=== PATIENT | female | born 1965 | race Caucasian/White ===

== ENCOUNTER 2021-08-05 15:12 | Emergency (ER) | payer OTHER, SELFPAY ==
[2021-08-05 15:26] VITALS: BP 150/88; PULSE 85; RESP 16; TEMP 36.8; O2SAT 100
--- NOTE | 2021-08-05 15:50 | ED.URI ---
HPI - URI/Sore Throat General Chief Complaint: Upper Respiratory Infection Stated Complaint: chills/back pain/congestion/cough Time Seen by Provider: 08/05/21 15:50 Source: patient, RN notes reviewed and old records reviewed Mode of arrival: ambulatory Limitations: no limitations History of Present Illness HPI Narrative: 56-year-old female presents to the [facility] with complaints of cough, nasal congestion and headache since Wednesday. States that she was going to work and developed a left mid back pain worse with movement. Denies abdominal pain or chest pain. No nausea vomiting or diarrhea. Denies fevers No loss or retention of bowel or bladder. No numbness and tingling in extremities Related Data Home Medications Medication Instructions Recorded Confirmed alprazolam 1 mg PO TID 08/05/21 08/05/21 clobetasol TOPICAL DAILY 08/05/21 ibuprofen 800 mg PO DAILY 08/05/21 08/05/21 levothyroxine [Euthyrox] 08/05/21 08/05/21 levothyroxine [Euthyrox] 25 mcg PO DAILY 08/05/21 08/05/21 Allergies Allergy/AdvReac Type Severity Reaction Status Date / Time No Known Allergies Allergy Verified 08/05/21 15:51 Review of Systems Review of Systems: All systems reviewed & are unremarkable except as noted in HPI and below Constitutional: Constitutional: Reports as per HPI, Reports chills, Denies fever(s) and Denies headache(s) Eyes: Eyes: Reports no additional eye complaints ENT: Reports as per HPI, Denies vertigo, Denies dizziness, Denies headache(s), Reports nasal congestion and Denies sore throat Cardiovascular: Cardiovascular: Reports no additional cardiovascular complaints, Denies chest pain, Denies syncope, Denies rapid heart rate and Denies dyspnea Respiratory: Respiratory: Reports as per HPI, Reports cough, Denies dyspnea and Denies wheezing Gastrointestinal: Gastrointestinal: Reports no additional gastrointestinal complaints, Denies abdominal pain, Denies diarrhea, Denies nausea and Denies vomiting Musculoskeletal: Musculoskeletal: Reports as per HPI, Reports back pain (Left mid, worse with movement) and Denies numbness Integumentary/Breasts: Skin/Breast: Reports system reviewed and no additional complaints, except as docu Neurologic: Reports system reviewed and no additional complaints, except as documented, Denies vertigo, Denies dizziness, Denies syncope, Denies headache(s), Denies focal weakness and Denies numbness Psychiatric: Psychiatric: Reports no additional psychiatric complaints Allergic/Immunologic: Allergic/Immunologic: Reports no additional allergic/immunologic complaints and Denies wheezing PMFSH Past Medical History Medical History Anxiety Comments At the time of my signature, I reviewed and agree with the nursing past medical, surgical, social, and family history. There is no relevant family history pertinent to the patient complaint. Exam Const: General: cooperative, healthy appearing, no acute distress, well developed and alert Nutritional Appearance: well nourished Orientation/consciousness: patient oriented x3 Limitations: no limitations HENMT: Head: normal to inspection Ears: hearing grossly normal bilaterally, external ears normal, TM's normal bilaterally and EAC's normal General nose exam: Normal external nose present, Normal nares present and No nasal discharge present Mouth: Yes Normal oral and palatal mucosa present Throat: posterior oropharynx normal, uvula midline and postnasal drainage Eyes: Conjunctivae: conjunctivae normal Pupils: Equal, round and reactive pupils present Neck: Neck: normal visual inspection, no lymphadenopathy and no meningeal signs Chest: Chest palpation & inspection: normal inspection of the chest Resp: Effort & Inspection: normal respiratory effort and no use of accessory muscles Auscultation: clear to auscultation bilaterally, no crackles, no rales, no rhonchi and no wheezes Cardio: Rate: regular rate Rhythm:
[2021-08-06 21:18] LABS: SARS-CoV-2 RNA PCR Negative
== END 2021-08-05 16:23 | disposition home or self-care (01) ==
PROVIDERS: Emergency Provider Nurse Practitioner
DX: J06.9 Acute upper respiratory infection, unspecified (principal); M54.6 Pain in thoracic spine; Z20.822 Contact with and (suspected) exposure to COVID-19; F41.9 Anxiety disorder, unspecified
CPT/HCPCS: 99213; C9803; G0463; U0003; U0005

== ENCOUNTER 2021-12-21 08:07 | Emergency (ER) | payer BC, OTHER, SELFPAY ==
[2021-12-21 08:20] VITALS: BP 140/86; PULSE 66; RESP 21; TEMP 36.1; O2SAT 98
--- NOTE | 2021-12-21 08:23 | ED.URI ---
HPI - URI/Sore Throat General Chief Complaint: Upper Respiratory Infection Stated Complaint: Headache,Congestion Time Seen by Provider: 12/21/21 08:24 Source: patient Mode of arrival: ambulatory Limitations: no limitations History of Present Illness HPI Narrative: 56-year-old female presents with complaint of nasal congestion, runny nose, sneezing for 2 weeks. Reports over the past 2 to 3 days she is feeling fatigued, blowing green drainage from her nose, sinus pressure. Feeling hot but reports reports no fever. Did a COVID test last night that was negative. Denies shortness of breath and chest pain. All systems reviewed and negative except as noted above. Related Data Home Medications Medication Instructions Recorded Confirmed alprazolam 1 mg tablet 1 tablet PO DAILY 12/21/21 12/21/21 clobetasol 0.05 % topical ointment 1 ea topical DAILY 12/21/21 12/21/21 Allergies Allergy/AdvReac Type Severity Reaction Status Date / Time No Known Allergies Allergy Verified 12/21/21 08:24 Review of Systems Review of Systems: CONSTITUTIONAL: Denies fever, chills, or sweats. Reports fatigue. EYES: Denies visual changes, redness, or discharge. ENT: Reports rhinorrhea, congestion, sinus pressure Denies sore throat and otalgia. CARDIOVASCULAR: Denies chest pain, palpitations, or edema. RESPIRATORY: Denies cough or dyspnea. GASTROINTESTINAL: Denies abdominal pain, nausea, vomiting, or diarrhea. GENITOURINARY: Denies dysuria or hematuria. SKIN: Denies rash or itching. MUSCULOSKELETAL: Denies back pain, joint pain, or myalgia. NEUROLOGIC: Denies headache, numbness, or weakness. PSYCHIATRIC: Denies anxiety or depression. All other systems reviewed are negative, except as documented in HPI. PMFSH Comments At time of signature, agree with nursing past medical, surgical, social and family history. There is no relevant family history pertinent to the presenting complaint. Exam Narrative: GENERAL: This is a well-nourished, well-developed patient, in no apparent distress. HEAD: normocephalic, atraumatic. EYES: PERRL. Sclera clear/white. Vision is grossly intact. EARS: External ears normal, auditory canals clear and without drainage, fluid to bilateral TMs. No erythema. NOSE: External nose normal with no obvious nasal discharge, purulent nasal drainage with erythema to nares, bilateral maxillary sinus tenderness. THROAT: Mucous membranes moist, purulent postnasal drainage. NECK: Neck supple, non-tender without lymphadenopathy, masses or thyromegaly. CARDIOVASCULAR: Regular rate and rhythm without murmurs, gallops, or rubs. RESPIRATORY: Clear to auscultation. Breath sounds equal bilaterally. No wheezes, rales, or rhonchi. SKIN: warm, Dry, intact with no suspicious lesions or rash, good texture and turgor. NEURO: awake, alert, and oriented to person, place and time. There were no obvious focal neurologic abnormalities. EXTREMITIES: Normal range of motion to all extremities. Course Course Level of Care: Express Care Visit Vital Signs Vital signs: Reviewed MDM - URI/Sore Throat MDM Narrative Medical decision making narrative: Patient is aware of diagnosis, understands and agrees to treatment plan. Anticipatory guidance given. Patient agrees to follow-up as directed and is aware of reasons to seek care at the emergency department. Portions of this record may have been created with voice recognition software We will treat patient with antibiotic for bacterial sinusitis due to duration of symptoms. Discharge Plan Discharge Clinical Impression: Acute bacterial sinusitis Patient Disposition: Home, Self-Care Condition: Stable Instructions: Antibiotic Form, Sinusitis (ED) Additional Instructions: Take medications as prescribed. Drink plenty of water and rest. Follow-up with your primary care physician if symptoms not improving. Prescriptions: New amoxicillin 875 mg tablet 875 mg PO Q12H 10 Days Qty: 20 0RF
== END 2021-12-21 08:35 | disposition home or self-care (01) ==
PROVIDERS: Emergency Provider Nurse Practitioner Family; PCP Family Medicine
DX: J01.90 Acute sinusitis, unspecified (principal); F41.9 Anxiety disorder, unspecified
CPT/HCPCS: 99203; G0463

== ENCOUNTER 2022-02-11 13:38 | Emergency (ER) | payer BC, OTHER, SELFPAY ==
[2022-02-11 13:46] VITALS: BP 143/91; PULSE 83; RESP 16; TEMP 37.1; O2SAT 98
--- NOTE | 2022-02-11 14:16 | ED.BACK ---
HPI - Back Pain/Injury General Chief Complaint: Back Pain/Injury Stated Complaint: lower back pain Time Seen by Provider: 02/11/22 14:04 Source: patient Mode of arrival: ambulatory Limitations: no limitations History of Present Illness HPI Narrative: Patient presents today complaining of low back pain since last night. States she was carrying a couch with a family member, when they dropped their end of the couch and she fell with her end of the couch onto her buttocks. States this caused some back pain last night. She took some ibuprofen and used some icy hot last night, which did help. She has not tried any other interventions today. She currently rates her pain 7/10. Denies numbness or tingling in the genitals or extremities. Denies any loss of bowel or bladder control. Patient also states a 5-day history of nasal congestion and green nasal discharge. She has not tried any [id number] interventions for the symptoms prior to arrival. Denies any additional upper respiratory symptoms. She has taken Claritin in the past for similar symptoms. Related Data Home Medications Medication Instructions Recorded Confirmed alprazolam 1 mg tablet 1 tablet PO DAILY 12/21/21 02/11/22 Allergies Allergy/AdvReac Type Severity Reaction Status Date / Time No Known Allergies Allergy Verified 02/11/22 13:52 Review of Systems Review of Systems: CONSTITUTIONAL: Denies body aches, fever, chills, or sweats. EYES: Denies visual changes, redness, or discharge. ENT: Denies rhinorrhea, sore throat, or otalgia.+ Congestion CARDIOVASCULAR: Denies chest pain, palpitations, or edema. RESPIRATORY: Denies cough or dyspnea. GASTROINTESTINAL: Denies abdominal pain, nausea, vomiting, or diarrhea. GENITOURINARY: Denies dysuria or hematuria. SKIN: Denies rash, itching, or wounds. MUSCULOSKELETAL: Denies joint pain, or myalgia.+ Back pain NEUROLOGIC: Denies headache, numbness, tingling, or weakness. PSYCH: Denies depression or anxiety. PMFSH Comments At time of signature, I have reviewed and agree with nursing past medical, surgical, social and family history unless otherwise noted. Please see nursing chart for further information. There is no relevant family history pertinent to the presenting complaint Exam Narrative: GENERAL: Well-appearing, well-nourished, and in no acute distress. HEAD: Normocephalic, atraumatic. EYES: EOMI. No redness or drainage. Conjunctivae normal. ENT: Mucous membranes pink and moist. Nares mildly congested. No rhinorrhea. TMs normal bilaterally. Throat normal. Uvula midline. NECK: Normal AROM. Supple. No lymphadenopathy. CHEST: No respiratory distress. Clear to auscultation. HEART: Regular rate and rhythm. No murmur appreciated. Normal peripheral pulses. MUSCULOSKELETAL: No bony tenderness of the spine. Bilateral lower lumbar paraspinal muscle tenderness. No SI joint tenderness. Distal sensation intact. Saddle sensation intact. Capillary refill normal. Pedal pulses normal. Dorsiflexion and plantarflexion equal and strong against resistance. EXTREMITIES: Normal range of motion. No edema. SKIN: Warm, dry, no rash. Capillary refill normal. Normal skin turgor. NEURO: No focal deficits. Alert and oriented x3. Gait steady. PSYCH: Normal affect. No signs of depression or anxiety. Course Course Level of Care: Express Care Visit Vital Signs Vital signs: Vital Signs Temperature 98.7 F 02/11/22 13:46 Pulse Rate 83 02/11/22 13:46 Respiratory Rate 16 02/11/22 13:46 Blood Pressure 143/91 H 02/11/22 13:46 Pulse Oximetry 98 02/11/22 13:46 Oxygen Delivery Room Air 02/11/22 13:46 Temperature 98.7 F 02/11/22 13:46 Pulse Rate 83 02/11/22 13:46 Respiratory Rate 16 02/11/22 13:46 Blood Pressure 143/91 H 02/11/22 13:46 Pulse Oximetry 98 02/11/22 13:46 Oxygen Delivery Room Air 02/11/22 13:46 Reviewed. Pt has been instructed to follow up with her PCP regarding her e
== END 2022-02-11 14:25 | disposition home or self-care (01) ==
PROVIDERS: Emergency Provider Nurse Practitioner; PCP Family Medicine
DX: S39.012A Strain of muscle, fascia and tendon of lower back, initial encounter (principal); W19.XXXA Unspecified fall, initial encounter; J31.0 Chronic rhinitis; F41.9 Anxiety disorder, unspecified
CPT/HCPCS: 99213; G0463

== ENCOUNTER 2022-04-03 11:42 | Emergency (ER) | payer BC, SELFPAY ==
[2022-04-03 11:53] VITALS: BP 151/84; PULSE 74; RESP 18; TEMP 35.9; O2SAT 98
--- NOTE | 2022-04-03 11:56 | ED.EPISTAXIS ---
HPI - Epistaxis General Chief complaint: Epistaxis Stated complaint: Nose Bleeding Time Seen by Provider: 04/03/22 11:56 History of Present Illness HPI Narrative: Charity Godinez is a 56-year-old female with a prior medical history of hypertension. Patient has been having nosebleeds throughout the week and she is to return to her primary care physician to be started on hyper tensive meds. Blood pressure today is 151/84. She has had nosebleeds in the last 2 to 3 days Related Data Home Medications Medication Instructions Recorded Confirmed alprazolam 1 mg tablet 1 tablet PO DAILY 12/21/21 04/03/22 Allergies Allergy/AdvReac Type Severity Reaction Status Date / Time No Known Allergies Allergy Verified 02/11/22 13:52 Review of Systems Review of Systems: CONSTITUTIONAL: Denies fever, chills, sweats. EYES: Denies visual changes, redness, discharge. ENT: Denies rhinorrhea, congestion, sore throat, otalgia. CARDIOVASCULAR: Denies chest pain, palpitations, edema. RESPIRATORY: Denies dyspnea, wheezing, cough GASTROINTESTINAL: Denies abdominal pain, nausea, vomiting, diarrhea. GENITOURINARY: Denies dysuria, hematuria, abnormal discharge SKIN: Denies rash or itching. NEUROLOGIC: Denies numbness, or focal weakness. PSYCHIATRIC: Denies anxiety or depression. Nosebleeds on and off for last 3 to 4 days believed to be related to elevated blood pressure PMFSH Social History Social History (Updated 04/03/22 @ 12:02 by Jocelyn Roberts CNP) Smoking status: Current every day smoker Comments At time of signature, I agree with nursing past medical, surgical, social and family history. There is no relevant family history pertinent to the presenting complaint. Exam Narrative: GENERAL: This is a well-nourished, well-developed patient, in mild distress. HEAD: normocephalic, atraumatic. EYES: PERRL. Sclera clear/white. Vision is grossly intact. EARS: External ears normal, Hearing grossly intact. NOSE: External nose normal without nasal discharge, nares without redness, no rhinorrhea. THROAT: Mucous membranes moist, NECK: Neck supple, non-tender CARDIOVASCULAR: Regular rate and rhythm without murmurs, gallops, or rubs. RESPIRATORY: Clear to auscultation. Breath sounds equal bilaterally. No wheezes, rales, or rhonchi. GASTROINTESTINAL: Not done SKIN: warm, intact with no suspicious lesions or rash, good texture and turgor. NEURO: awake, alert, and oriented to person, place and time. There were no obvious focal neurologic abnormalities. Steady gait EXTREMITIES: Normal range of motion. 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 She is to start on saline also nasal drops and start on Zyrtec to see if that helps control some of her sinus Level of Care: Express Care Visit Vital Signs Vital signs: Vital Signs Temperature 96.6 F L 04/03/22 11:53 Pulse Rate 74 04/03/22 11:53 Respiratory Rate 18 04/03/22 11:53 Blood Pressure 151/84 H 04/03/22 11:53 Pulse Oximetry 98 04/03/22 11:53 Oxygen Delivery Room Air 04/03/22 11:53 Temperature 96.6 F L 04/03/22 11:53 Pulse Rate 74 04/03/22 11:53 Respiratory Rate 18 04/03/22 11:53 Blood Pressure 151/84 H 04/03/22 11:53 Pulse Oximetry 98 04/03/22 11:53 Oxygen Delivery Room Air 04/03/22 11:53 MDM - Epistaxis Differential Diagnosis Differential diagnosis: Likely other (Nosebleed versus high blood pressure versus sinus irritation) Discharge Plan Discharge Clinical Impression: Epistaxis Patient Disposition: Home, Self-Care Condition
== END 2022-04-03 12:17 | disposition home or self-care (01) ==
PROVIDERS: Emergency Provider Nurse Practitioner; PCP Family Medicine
DX: R04.0 Epistaxis (principal); F17.200 Nicotine dependence, unspecified, uncomplicated
CPT/HCPCS: 99213; G0463

== ENCOUNTER 2023-02-07 13:22 | Emergency (ER) | payer BC, MEDICAID, SELFPAY ==
[2023-02-07 13:36] VITALS: BP 144/92; PULSE 73; RESP 16; TEMP 36.2; O2SAT 98
--- NOTE | 2023-02-07 13:40 | ED.DENTAL ---
HPI - Dental/Oral General Chief complaint: Dental/Oral Stated complaint: tooth pain right side Time Seen by Provider: 02/07/23 13:45 Source: patient Mode of arrival: ambulatory Limitations: no limitations History of Present Illness HPI Narrative: Patient is a 57-year-old female who presents with right upper dental pain. Patient states she has bitter taste in mouth for the last 2 days. Patient has a dentist but states she would like a different one. Denies any facial swelling, difficulty swallowing is reading or breathing. Has not taken anything for symptoms. Still able to eat and drink normally Related Data Home Medications Medication Instructions Recorded Confirmed alprazolam 1 mg tablet 1 mg PO TID 08/05/21 02/07/23 clobetasol 0.05 % topical ointment See Rx Instructions .Route .COMPLEX 08/05/21 02/07/23 ibuprofen 800 mg tablet 800 mg PO DAILY 08/05/21 02/07/23 levothyroxine 25 mcg tablet 25 mcg PO DAILY 08/05/21 02/07/23 (Euthyrox) alprazolam 1 mg tablet 1 tablet PO DAILY 12/21/21 02/07/23 Allergies Allergy/AdvReac Type Severity Reaction Status Date / Time No Known Allergies Allergy Verified 02/07/23 13:45 Review of Systems Review of Systems: All systems reviewed & are unremarkable except as noted in HPI and below Constitutional: Constitutional: Denies body ache(s), Denies fever(s), Denies headache(s), Denies malaise and Denies weakness Eyes: Eyes: Denies loss of vision ENT: Denies otalgia, Reports facial pain (Dental), Denies headache(s), Denies nasal discharge, Denies sinus pain and Denies sore throat Cardiovascular: Cardiovascular: Denies chest pain, Denies irregular heart rhythm and Denies dyspnea Respiratory: Respiratory: Denies dyspnea Gastrointestinal: Gastrointestinal: Denies abdominal pain, Denies melena, Denies hematochezia, Denies diarrhea, Denies nausea and Denies vomiting Musculoskeletal: Musculoskeletal: Denies back pain, Denies myalgias and Denies arthralgias Integumentary/Breasts: Skin/Breast: Denies pruritus and Denies rash Neurologic: Denies headache(s), Denies loss of vision and Denies weakness Psychiatric: Psychiatric: Reports no additional psychiatric complaints PMFSH Past Medical History Medical History (Updated 02/07/23 @ 14:03 by Ele Flynn APRN) Anxiety Social History Social History (System 06/01/22 @ 12:21 by Reinier Harry) Smoking status: Current every day smoker Comments At time of signature, agree with nursing past medical, surgical, social and family history. There is no relevant family history pertinent to the presenting complaint. Exam Const: General: cooperative, healthy appearing, comfortable, no acute distress and well nourished Nutritional Appearance: well nourished Orientation/consciousness: patient oriented x3 Limitations: no limitations HENMT: Head: normal to inspection, normocephalic and atraumatic Ears: hearing grossly normal bilaterally, external ears normal, TM's normal bilaterally and mastoids normal bilaterally Face/Nose/Sinus: Normal external nose present, normal facial exam and face symmetric Face and sinus: normal facial exam and face symmetric Mouth: Yes Normal oral and palatal mucosa present, Yes lip normal, Yes tongue normal, Yes Normal salivary glands and ducts present and Yes moist mucous membranes Teeth and gingiva: abnormal tooth and associated gingiva upper right first molar tender and other (Decay tooth), caries and poor dentition Teeth image: 1. Tooth decay, surrounding gum inflamed. No obvious drainage or abscess Eyes: General: appearance normal, both eyes and all related structures Alignment and Position: alignment normal and position normal Periorbital: periorbital findings normal Eyelids: eyelids normal Pupils: Equal, round and reactive pupils present EOM: EOMs intact bilaterally Neck: Neck: normal visual inspection, full ROM, no lymphadenopathy and supple Chest: Chest palpation & inspection: normal insp
== END 2023-02-07 14:13 | disposition home or self-care (01) ==
PROVIDERS: Emergency Provider Nurse Practitioner Family; PCP Emergency Medicine
DX: K04.7 Periapical abscess without sinus (principal); F17.200 Nicotine dependence, unspecified, uncomplicated; F41.9 Anxiety disorder, unspecified
CPT/HCPCS: 99213; G0463